=== PATIENT | male | born 1985 | race Caucasian/White ===

== ENCOUNTER 2018-03-14 02:23 | Emergency (ER) | payer SELFPAY ==
[~2018-03-14] VITALS: Ht 177.8 cm; Wt 91.0 kg
[2018-03-14] MEDS ORDERED: IBUPROFEN 600MG TABLET PO ONE (03:15)
[2018-03-14] MEDS ORDERED: BACITRACIN ZINC OINT UDPKT TOP ONE (03:15)
[2018-03-14 03:45] VITALS: BP 127/79
== END 2018-03-14 03:55 | disposition home or self-care (01) ==
LOC: ER 02:23
DX: S61.213A Laceration without foreign body of left middle finger without damage to nail, initial encounter (principal); Y04.1XXA Assault by human bite, initial encounter; Y93.89 Activity, other specified; Y92.89 Other specified places as the place of occurrence of the external cause; Y99.8 Other external cause status
CPT/HCPCS: 99283